=== PATIENT | female | born 1965 | race Two or more races ===

== ENCOUNTER 2020-03-08 14:51 | Emergency (ER) | payer MEDICAID ==
[~2020-03-08] VITALS: Ht 157.5 cm; Wt 59.0 kg
--- NOTE | 2020-03-08 15:02 | NUR ---
came in for epigastric/ruq pain w/ n/v x 3 days. to ER bed 8, hooked to monitor, changed to hosp gown, warm blanket provided. patient aao X 4. breathing even and unlabored. awaiting md lang
--- NOTE | 2020-03-08 15:03 | NUR ---
Dr Gonzales at bedside
[2020-03-08 15:19] LABS: BASOPHILS # (AUTO) 0.1 /CMM (0.0-0.2); BASOPHILS % (AUTO) 0.7 % (0.0-2.0); EOSINOPHILS % (AUTO) 2.4 % (0.0-6.0); HEMATOCRIT 43 % (33-45); HEMOGLOBIN 14.6 g/dL (11.5-14.8); LYMPHOCYTES # (AUTO) 2.2 /CMM (0.8-4.8); LYMPHOCYTES % (AUTO) 29.2 % (20.0-44.0); MEAN CORPUSCULAR HGB CONC 34 g/dl (31.0-36.0); MEAN CORPUSCULAR VOLUME 86 fL (82-100); MONOCYTES # (AUTO) 0.4 /CMM (0.1-1.30); MONOCYTES % (AUTO) 5.4 % (2.0-12.0); NEUTROPHILS # (AUTO) 4.8 /CMM (1.8-8.9); NEUTROPHILS % (AUTO) 62.3 % (43.0-81.0); PLATELET COUNT (AUTO) 332 /CMM (150-450); RED BLOOD CELL COUNT(AUTO) 5.02 MIL/uL (4.0-5.2); WHITE BLOOD COUNT (AUTO) 7.7 K/uL (4.3-11.0)
[2020-03-08] MEDS ORDERED: ONDANSETRON HCL/PF 4 MG/2 ML VIAL ONE (15:19)
--- NOTE | 2020-03-08 15:26 | NUR ---
LOOM CHECKER PAGED AND WILL ARRIVE IN 30 MIN
[2020-03-08 15:27] LABS: CALCIUM, SERUM 9.1 mg/dL (8.5-10.1); CREATININE 0.7 mg/dL (0.6-1.3); POTASSIUM 3.6 mmol/L (3.5-5.1)
[2020-03-08] MEDS ORDERED: KETOROLAC TROMETHAMINE 15 MG/ML VIAL ONE (15:30)
[2020-03-08] MEDS ORDERED: MORPHINE SULFATE INJ 2 MG/ML DISP.SYRIN ONE (15:30)
[2020-03-08] MEDS ORDERED: POTASSIUM CHLORIDE 20 MEQ TAB.PRT.SR PO ONE (15:31)
[2020-03-08 15:33] LABS: ALBUMIN 3.9 g/dL (3.4-5.0); BILIRUBIN,DIRECT 0.1 mg/dL (0.0-0.2); BILIRUBIN,TOTAL 0.3 mg/dL (0.2-1.0); TOTAL PROTEIN, SERUM 7.8 g/dL (6.4-8.2)
[2020-03-08] MEDS: ONDANSETRON HCL/PF 4 MG/2 ML VIAL IVP ONE (15:38)
[2020-03-08] MEDS: IV NS 0.9% 1,000 ML BAG IV ONE (15:38)
--- NOTE | 2020-03-08 16:05 | NUR ---
MARLYN JUDD AT BEDSIDE
[2020-03-08 16:15] LABS: BILIRUBIN,URINE Negative (NEGATIVE); BLOOD, URINE Negative Ery/uL (NEGATIVE); COLOR,URINE YELLOW (YELLOW); LEUKOCYTE ESTERASE ,URINE Negative (NEGATIVE); NITRITE, URINE Negative (NEGATIVE); PROTEIN,URINE Negative (NEGATIVE); UGLUCOSE Negative (NEGATIVE); UROBILINOGEN,URINE 0.2 EU/dL (0.2)
[2020-03-08] MEDS ORDERED: PANTOPRAZOLE 40 MG VIAL ONE (16:30)
[2020-03-08] MEDS ORDERED: HYDROMORPHONE 1 MG/1 ML DISP.SYRIN ONE (16:30)
[2020-03-08] MEDS: PANTOPRAZOLE 40 MG VIAL IV ONE (16:35)
[2020-03-08] MEDS: HYDROMORPHONE 1 MG/1 ML DISP.SYRIN IV ONE (16:35)
--- NOTE | 2020-03-08 17:58 | NUR ---
IV removed. Catheter intact and site benign. Pressure and 4x4 applied to site. No bleeding noted.Patient discharged to home in stable condition. Written and verbal after care instructions given. Patient verbalizes understanding of instruction. Instructed not to drive.
[2020-03-08 17:59] VITALS: BP 112/74
== END 2020-03-08 17:59 | disposition home or self-care (01) ==
LOC: ER 15:00
DX: K80.50 Calculus of bile duct without cholangitis or cholecystitis without obstruction (principal); R11.10 Vomiting, unspecified; E11.9 Type 2 diabetes mellitus without complications
CPT/HCPCS: 36415; 76705; 80048; 80076; 81001; 83690; 84702; 85025; 96361; 96374; 96375; 99284; C9113; J1170; J1885; J2270; J2405; J7030; 81000-TC

== ENCOUNTER 2020-03-22 21:44 | Emergency (ER) | payer MEDICAID ==
[~2020-03-22] VITALS: Ht 157.5 cm; Wt 65.8 kg
[2020-03-22] MEDS ORDERED: ONDANSETRON HCL/PF 4 MG/2 ML VIAL ONE (22:30)
[2020-03-22] MEDS ORDERED: MORPHINE SULFATE INJ 2 MG/ML DISP.SYRIN IV ONE (22:30)
[2020-03-22] MEDS ORDERED: MORPHINE SULFATE INJ 4 MG/ML DISP.SYRIN ONE (22:30)
[2020-03-22] MEDS ORDERED: IV NS 0.9% 500 ML BAG IV ONE (22:30)
[2020-03-22] MEDS ORDERED: ONDANSETRON HCL/PF 4 MG/2 ML VIAL IVP ONE (22:30)
[2020-03-22 22:35] LABS: BASOPHILS # (AUTO) 0.1 /CMM (0.0-0.2); BASOPHILS % (AUTO) 1.4 % (0.0-2.0); EOSINOPHILS % (AUTO) 1.8 % (0.0-6.0); HEMATOCRIT 41 % (33-45); LYMPHOCYTES # (AUTO) 2.3 /CMM (0.8-4.8); LYMPHOCYTES % (AUTO) 24.7 % (20.0-44.0); MEAN CORPUSCULAR HGB CONC 34 g/dl (31.0-36.0); MEAN CORPUSCULAR VOLUME 86 fL (82-100); MONOCYTES # (AUTO) 0.4 /CMM (0.1-1.30); MONOCYTES % (AUTO) 4.3 % (2.0-12.0); NEUTROPHILS # (AUTO) 6.3 /CMM (1.8-8.9); NEUTROPHILS % (AUTO) 67.8 % (43.0-81.0); PLATELET COUNT (AUTO) 343 /CMM (150-450); RED BLOOD CELL COUNT(AUTO) 4.82 MIL/uL (4.0-5.2); WHITE BLOOD COUNT (AUTO) 9.3 K/uL (4.3-11.0)
--- NOTE | 2020-03-22 22:38 | NUR ---
BIBS FROM HOME TO ER BED 6. AAOX4. NOT IN RESP DISTRESS, BREATHING EVEN AND UNLABORED. AMBULATORY. CAME IN FOR EPIGASTRIC PAIN X 3 DAYS. PT RATES HER PAIN 8/10, SHARP STABBING, RADIATING TO THE R SIDE OF ABDOMEN. PT REPORTS NAUSEA BUT NO DIARRHEA. MD WAS AT THE BEDSIDE FOR EVAL. ORDERS RECEIVED, NOTED AND CARRIED OUT. IV LINE ESTABLISHED ON L HAND 20G, BLOOD DRAWN AND GIVEN TO SENIOR MANAGER ASSET PROTECTION.
[2020-03-22 22:46] LABS: CALCIUM, SERUM 9.6 mg/dL (8.5-10.1); CREATININE 0.6 mg/dL (0.6-1.3); POTASSIUM 3.9 mmol/L (3.5-5.1)
[2020-03-22 23:02] LABS: ALBUMIN 3.8 g/dL (3.4-5.0); BILIRUBIN,DIRECT 0.1 mg/dL (0.0-0.2); BILIRUBIN,TOTAL 0.2 mg/dL (0.2-1.0); TOTAL PROTEIN, SERUM 7.5 g/dL (6.4-8.2)
--- NOTE | 2020-03-23 00:32 | NUR ---
Patient discharged to home in stable condition. Written and verbal after care instructions given. Patient verbalizes understanding of instruction.IV removed. Catheter intact and site benign. Pressure and 4x4 applied to site. No bleeding noted.pt. ambulatory with a steady gait
[2020-03-23 00:33] VITALS: BP 107/61
== END 2020-03-23 00:33 | disposition home or self-care (01) ==
LOC: ER 21:44
DX: K29.60 Other gastritis without bleeding (principal); I10 Essential (primary) hypertension; E11.9 Type 2 diabetes mellitus without complications
CPT/HCPCS: 36415; 80048; 80076; 83690; 85025; 96374; 96375; 99284; J2270; J2405; J7040

== ENCOUNTER 2020-03-31 00:44 | Emergency (ER) | payer MEDICAID ==
[~2020-03-31] VITALS: Ht 157.5 cm; Wt 64.4 kg
--- NOTE | 2020-03-31 01:33 | NUR ---
PATIENT CAM EOT ER BED 16 C/O RIGHT FLANK PAIN AND SHARP ABDOMINAL PAIN FOR A FEW DAYS, HX OF GALLSTONES, WITH A SCHEDULED SURGERY ON March. PATIENT IS AAOX4. NO SOB. BREATHING EVENLY AND UNLABORED ON ROOM AIR. CONNECTED TO THE MONITOR. PATIENT IS CHANGED INTO A FRESH GOWN.
[2020-03-31] MEDS ORDERED: ONDANSETRON HCL/PF 4 MG/2 ML VIAL ONE (01:36)
[2020-03-31] MEDS ORDERED: MORPHINE SULFATE INJ 4 MG/ML DISP.SYRIN ONE (01:36)
[2020-03-31 01:41] LABS: BASOPHILS # (AUTO) 0.1 /CMM (0.0-0.2); BASOPHILS % (AUTO) 0.6 % (0.0-2.0); EOSINOPHILS % (AUTO) 1.3 % (0.0-6.0); HEMATOCRIT 42 % (33-45); HEMOGLOBIN 13.9 g/dL (11.5-14.8); LYMPHOCYTES # (AUTO) 3.4 /CMM (0.8-4.8); LYMPHOCYTES % (AUTO) 31.9 % (20.0-44.0); MEAN CORPUSCULAR HGB CONC 34 g/dl (31.0-36.0); MEAN CORPUSCULAR VOLUME 86 fL (82-100); MONOCYTES # (AUTO) 0.6 /CMM (0.1-1.30); MONOCYTES % (AUTO) 6.1 % (2.0-12.0); NEUTROPHILS # (AUTO) 6.4 /CMM (1.8-8.9); NEUTROPHILS % (AUTO) 60.1 % (43.0-81.0); PLATELET COUNT (AUTO) 375 /CMM (150-450); RED BLOOD CELL COUNT(AUTO) 4.86 MIL/uL (4.0-5.2); WHITE BLOOD COUNT (AUTO) 10.6 K/uL (4.3-11.0)
[2020-03-31] MEDS: MORPHINE SULFATE INJ 2 MG/ML DISP.SYRIN IV ONE (01:44)
[2020-03-31] MEDS: ONDANSETRON HCL/PF 4 MG/2 ML VIAL IV ONE (01:44)
--- NOTE | 2020-03-31 01:45 | NUR ---
US AT BEDSIDE
[2020-03-31 01:58] LABS: CALCIUM, SERUM 9.4 mg/dL (8.5-10.1); CARBON DIOXIDE 25 mmol/L (21-32); CHLORIDE 104 mmol/L (98-107); CREATININE 0.6 mg/dL (0.6-1.3); GLUCOSE 173 mg/dL (74-106); POTASSIUM 3.9 mmol/L (3.5-5.1); SODIUM SERUM 141 mmol/L (136-145); UREA NITROGEN, BLOOD 15 mg/dL (7-18)
[2020-03-31 02:04] LABS: ALANINE AMINOTRANSFERASE 43 U/L (12-78); ALBUMIN 3.7 g/dL (3.4-5.0); ALKALINE PHOSPHATASE 192 U/L (46-116); ASPARTATE AMINOTRANSFERASE 16 U/L (15-37); BILIRUBIN,DIRECT 0.1 mg/dL (0.0-0.2); BILIRUBIN,TOTAL 0.3 mg/dL (0.2-1.0); LIPASE 120 U/L (73-393); TOTAL PROTEIN, SERUM 7.7 g/dL (6.4-8.2)
--- NOTE | 2020-03-31 02:54 | NUR ---
IV removed. Catheter intact and site benign. Pressure and 4x4 applied to site. No bleeding noted.
--- NOTE | 2020-03-31 02:54 | NUR ---
Patient discharged to home in stable condition. Written and verbal after care instructions given. Patient verbalizes understanding of instruction.
[2020-03-31 02:55] VITALS: BP 123/76
== END 2020-03-31 02:55 | disposition home or self-care (01) ==
LOC: ER 00:51
DX: K80.50 Calculus of bile duct without cholangitis or cholecystitis without obstruction (principal); K80.80 Other cholelithiasis without obstruction; I10 Essential (primary) hypertension; E11.9 Type 2 diabetes mellitus without complications; Z90.49 Acquired absence of other specified parts of digestive tract
CPT/HCPCS: 36415; 76700; 80048; 80076; 83690; 84484; 85025; 93005; 96374; 96375; 99285; J2270; J2405